=== PATIENT | female | born 1955 | race Caucasian/White ===

== ENCOUNTER 2023-11-28 17:32 | Emergency (ER) | payer MEDICARE, BC ==
[2023-11-28] MEDS: Acetaminophen 500 MG Tab PO STA (19:05)
== END 2023-11-28 20:19 | disposition home or self-care (01) ==
LOC: JP.ED 17:32
DX: S93.401A Sprain of unspecified ligament of right ankle, initial encounter (principal); S96.811A Strain of other specified muscles and tendons at ankle and foot level, right foot, initial encounter; W18.30XA Fall on same level, unspecified, initial encounter
CPT/HCPCS: 73610; 73630; 99283; A9270